=== PATIENT | female | born 1960 | race Caucasian/White ===

== ENCOUNTER 2019-06-10 13:26 | Outpatient (CLI) | payer MEDICAID, SELFPAY ==
[2019-06-10 14:30] LABS: Basophils % 0.4 %; Eosinophils # 0.2 10^3/uL (0.0-0.8); Eosinophils % 2.3 %; Hemoglobin 13.1 g/dL (11.5-15.3); Lymphocytes # 2.9 10^3/uL (0.8-4.8); Lymphocytes % 34.4 %; Mean Corpuscular HGB Conc 32.8 g/dL (30.0-36.0); Mean Corpuscular Hemoglobin 26.8 pg (28.0-34.0); Mean Corpuscular Volume 81.8 fL (81-99); Mean Platelet Volume 10.3 fL (7.4-10.4); Monocytes # 0.5 10^3/uL (0.2-0.9); Monocytes % 5.6 %; Neutrophils # 4.8 10^3/uL (1.8-7.7); Neutrophils % 56.9 %; Nucleated Red Blood Cells % 0 %; Platelet Count 356 10^3/cmm (130-400); Red Blood Count 4.89 10^6/uL (4.1-5.3); Red Cell Distribution Width 14.5 % (12.1-15.1); White Blood Count 8.3 10^3/uL (4.0-10.0)
[2019-06-10 14:31] LABS: Albumin Level 3.6 g/dL (3.5-5.2); Alkaline Phosphatase 143 IU/L (35-105); Aspartate Amino Transferase 73 U/L (0-32); Globulin 3.3 g/dL (1.3-4.6); Glomerular Filtration Rate 86.2 mL/min (90-130); Total Bilirubin 0.6 mg/dL (0.15-1.2); Total Protein 6.9 g/dL (6.6-8.7)
[2019-06-10 14:42] LABS: Alanine Aminotransferase 77 U/L (0-33)
[2019-06-10 15:29] LABS: C Reactive Protein 16.2 mg/L (0.0-4.9)
[2019-06-10 15:41] LABS: Erythrocyte Sedimentation Rate 29 mm/hr (0-15)
[2019-06-10 16:29] LABS: 25 Hydroxy Vitamin D 16 ng/mL (30-100)
== END 2019-06-10 13:27 | disposition home or self-care (01) ==
LOC: LAB 13:32
PROVIDERS: Family Provider Nurse Practitioner Family; PCP Nurse Practitioner Family; Visit Provider Internal Medicine Rheumatology
DX: M06.00 Rheumatoid arthritis without rheumatoid factor, unspecified site (principal)
CPT/HCPCS: 80076; 82306; 82565; 85025; 85651; 86140

== ENCOUNTER 2019-06-14 10:50 | Outpatient (CLI) | payer OTHER, SELFPAY ==
--- NOTE | 2019-06-14 11:11 | XR_ITS ---
WS: [id number] LUMBAR SPINE: 3 VIEWS TECHNIQUE: AP, lateral and L5-S1 spot. HISTORY: LUMBAR PAIN COMPARISON: None available. Mild degenerative scoliosis with curvature to the LEFT. Diffuse osteopenia. The disc spaces at L4-5 a nd L5-S1 are difficult to visualize due to rotation and scoliosis but do appear narrowed. Facet joint arthropathy is moderate at L4-5 and L5-S1. SI joints are symmetric bilaterally. No soft tissue abnormalities. Prior cholecystectomy. Surgical clips project over the LEFT ilium. Mild constipation. XR/XR lumbar spine 2-3V* [id number] IMPRESSION: 1. Degenerative rotoscoliosis with convexity to the LEFT. 2. No fracture. 3. Facet joint arthropathy is moderate at L4-5 and L5-S1.
== END 2019-06-14 10:51 | disposition home or self-care (01) ==
LOC: RAD 10:51
PROVIDERS: Family Provider Nurse Practitioner Family; PCP Nurse Practitioner Family; Visit Provider Emergency Medicine
DX: M54.5 Low back pain (principal); M41.56 Other secondary scoliosis, lumbar region; M47.817 Spondylosis without myelopathy or radiculopathy, lumbosacral region
CPT/HCPCS: 72100

== ENCOUNTER 2020-02-02 01:33 | Emergency (ER) | payer MEDICAID, SELFPAY ==
[2020-02-02 01:37] VITALS: BP 163/110; PULSE 100; RESP 18; TEMP 36.9; O2SAT 96; BMI 38.2
[2020-02-02 01:55] LABS: Glucose Point of Care 360 mg/dL (70-110)
[2020-02-02] MEDS: sodium chloride 0.9% 1,000 ML 999 ML IV (02:30)
[2020-02-02 02:42] LABS: Basophils # 0.1 10^3/uL (0.0-0.1); Basophils % 0.7 %; Eosinophils # 0.1 10^3/uL (0.0-0.8); Eosinophils % 1.3 %; Hematocrit 44.9 % (37.0-47.0); Hemoglobin 14.4 g/dL (11.5-15.3); Lymphocytes # 3.1 10^3/uL (0.8-4.8); Lymphocytes % 31.9 %; Mean Corpuscular HGB Conc 32.1 g/dL (30.0-36.0); Mean Corpuscular Hemoglobin 27.6 pg (28.0-34.0); Mean Corpuscular Volume 86.2 fL (81-99); Mean Platelet Volume 11.4 fL (7.4-10.4); Monocytes # 0.5 10^3/uL (0.2-0.9); Monocytes % 5.5 %; Neutrophils # 5.83 10^3/uL (1.8-7.7); Neutrophils % 60.3 %; Nucleated Red Blood Cells % 0 %; Platelet Count 303 10^3/cmm (130-400); Red Blood Count 5.21 10^6/uL (4.1-5.3); Red Cell Distribution Width 14.2 % (12.1-15.1); White Blood Count 9.7 10^3/uL (4.0-10.0)
[2020-02-02 02:45] LABS: Ketone (Acetest) Serum Negative (Negative)
--- NOTE | 2020-02-02 02:51 | W.ED.GENADLT ---
HPI - General Adult General: Chief complaint: General Medical Stated complaint: high blood sugar Time Seen by Provider: 02/02/20 01:51 History of Present Illness: HPI narrative: 59-year-old female with complaints of polyuria and polydipsia for the last couple of months. She states that she feels like she cannot take in enough water, and is urinating quite a bit. She gets nauseated at times. No vomiting. No fever. Family checked her blood sugar tonight and it was in the 400s. With no improvement, they come to the emergency department. Onset (ago): month(s) Radiation: non-radiation Severity: moderate Quality: other Relieving factors: none Exacerbating factors: none Associated symptoms: Reports nausea; Deny chest pain, cough, diaphoresis, dyspnea, fevers/chills, headache(s), rash, palpitations, short of breath or vomiting Treatments prior to arrival: none Review of Systems Const: Denies: diaphoresis Eyes: Denies: change in vision or blurry vision ENMT: Denies: swelling of lips/tongue, dental pain, change in hearing, epistaxis, post nasal drip or sinus pain Card: Denies: chest pain, palpitations, irregular heart rhythm or edema Resp: Denies: dyspnea GI: Reports: nausea; Denies: vomiting : Denies: dysuria or hematuria Musc: Denies: neck pain, back pain, joint redness or joint warmth Skin/Breast: Denies: rash, pruritus or erythema Neuro: Denies: headache(s) Psych: Denies: anxiety PFS ED PFSH: Medical History (Updated 02/02/20 @ 04:03 by Sivakumar Duvall DO) High risk medication use Seronegative rheumatoid arthritis Surgical History (Updated 07/23/19 @ 17:44 by Zane Jordan MD) History of bilateral breast reduction surgery (~1998) Hx of cholecystectomy (~1997) Hx of knee surgery Hx of lithotripsy (~2000) Hx of umbilical hernia repair (~1998) Family History Mother Cancer uterine CAD (coronary artery disease) Hypertension Father Stroke Social History Smoking and tobacco status: never smoked Second hand smoke exposure: No Alcohol intake: never Lives independently: Yes History of recent travel: No Current gender identity: Female Physical Exam Const: GENERAL APPEARANCE: well developed ORIENTATION/CONSCIOUSNESS: Yes oriented to person, Yes oriented to place and Yes oriented to time HENMT: COMMON NORMALS: normocephalic, external ears normal and Normal external nose present HEAD & SCALP: normocephalic FACE & SINUS: normal facial exam NOSE: Normal external nose present and No nasal discharge present EXTERNAL EAR: Yes external ears normal Eye: COMMON NORMALS: Equal, round and reactive pupils present, EOMs intact bilaterally and conjunctivae normal EYELID: eyelids normal CONJUNCTIVA: Yes conjunctivae normal PUPIL: Yes Equal, round and reactive pupils present Neck/C-Spine: GENERAL: No tracheal deviation Chest: COMMONS NORMALS: normal inspection of the chest CHEST: No tenderness Resp: COMMON NORMALS: clear to auscultation bilaterally EFFORT & INSPECTION: No tachypneic, No respiratory distress, No retractions, No uses accessory muscles and No tracheal deviation AUSCULTATION: clear to auscultation bilaterally, no rhonchi, no wheezes and lung sounds not diminished Cardio: COMMON NORMALS: regular rate and regular rhythm RATE: regular rate RHYTHM: regular rhythm HEART SOUNDS: no murmurs PERIPHERAL PULSES: radial pulses present GI: INSPECTION: No abdominal distension AUSCULTATION: No Hyperactive bowel sounds present and No Hypoactive bowel sounds present PALPATION: No Guarding due to palpation present (GI) and No Rigid due to palpation PERCUSSION: no dullness to percussion and no tympanic to percussion Neuro: SENSORIUM/ORIENTATION: Yes oriented to person, Yes oriented to place and Yes oriented to time Psych: COMMON NORMALS: mental status grossly normal Skin: COMMON NORMALS: no rashes or lesions noted GENERAL SKIN EXAM: no rashes or lesions noted Course Vital Signs: Vital signs: Vital Signs Temperature 98.4 F 02/02/20 01:37 Pulse Rate 100 02/02/20 01:37 Respiratory Rate 18 02/02/20 01:37 Blood Pressure 163/110 02/02/20 01:37 Pulse Oximetry 96 02/02/20 01:37 MDM - General Adult MDM Narrative: Medical decision making narrative: Hemoglobin A1c is 11+. And has an average blood sugar of in the 280s. She has mild pseudohyponatremia with a sodium of 135. There is no acidosis, no ketones in the serum. She will be allowed discharge. We will place her on metformin for now. Lab Data: Labs: Lab Results 02/02/20 02/02/20 02/02/20 Range/Units 01:52 02:30 02:30 WBC 9.7 (4.0-10.0) 10^3/ uL RBC 5.21 (4.1-5.3) 10^6/u L Hgb 14.4 (11.5-15.3) g/dL Hct 44.9 (37.0-47.0) % MCV 86.2 (81-99) fL MCH 27.6 L (28.0-34.0) pg MCHC 32.1 (30.0-36.0) g/dL RDW 14.2 (12.1-15.1) % Plt Count 303 (130-400) 10^3/c mm MPV 11.4 H (7.4-10.4) fL Neut % (Auto) 60.3 % Lymph % (Auto) 31.9 % [place] % (Auto) 5.5 % Eos % (Auto) 1.3 % Baso % (Auto) 0.7 % Neut # (Auto) 5.83 (1.8-7.7) 10^3/u L Lymph # (Auto) 3.1 (0.8-4.8) 10^3/u L [place] # (Auto) 0.5 (0.2-0.9) 10^3/u L Eos # (Auto) 0.1 (0.0-0.8) 10^3/u L Baso # (Auto) 0.1 (0.0-0.1) 10^3/u L Nucleated RBC % (a uto) 0 % Nucleated RBCs # 0.0 /100WBC Sodium 135 L (136-145) mmol/L Potassium 3.8 (3.5-5.1) mmol/L Chloride 97 L (98-107) mmol/L Carbon Dioxide 24 (22-29) mmol/L Anion Gap 17.8 (5-19) BUN 12 (6-20) mg/dL Creatinine 0.9 (0.5-0.9) mg/dL GFR Calculation 64.5 L (90-130) mL/min Glucose 376 H (65-115) mg/dL POC Glucose 360 (70-110) mg/dL Estimat Average Gl ucose Hemoglobin A1c (4.0-6.0) % Calculated Osmolal ity 295 (285-295) mOsm/k g Calcium 9.4 (8.5-10.5) mg/dL Total Bilirubin 0.6 (0.15-1.2) mg/dL AST 296 H (0-32) U/L ALT 197 H (0-33) U/L Alkaline Phosphata se 180 H (35-105) IU/L Total Protein 7.6 (6.6-8.7) g/dL Albumin 4.0 (3.5-5.2) g/dL Globulin 3.6 (1.3-4.6) g/dL TSH 3.11 (0.27-4.20) uIU/ mL Urine Color (Yellow) Urine Appearance (CLEAR) Urine pH (5-7) Ur Specific Gravit y (1.005-1.030) Urine Protein (Negative) Urine Glucose (UA) (Normal) Urine Ketones (Negative) Urine Blood (Negative) Urine Nitrate (Negative) Urine Bilirubin (Negative) Urine Urobilinogen (Negative) mg/dL Ur Leukocyte Flakita ase (Negative) Serum Ketones Negative (Negative) 02/02/20 02/02/20 Range/Units 02:30 03:02 WBC (4.0-10.0) 10^3/ uL RBC (4.1-5.3) 10^6/u L Hgb (11.5-15.3) g/dL Hct (37.0-47.0) % MCV (81-99) fL MCH (28.0-34.0) pg MCHC (30.0-36.0) g/dL RDW (12.1-15.1) % Plt Count (130-400) 10^3/c mm MPV (7.4-10.4) fL Neut % (Auto) % Lymph % (Auto) % [place] % (Auto) % Eos % (Auto) % Baso % (Auto) % Neut # (Auto) (1.8-7.7) 10^3/u L Lymph # (Auto) (0.8-4.8) 10^3/u L [place] # (Auto) (0.2-0.9) 10^3/u L Eos # (Auto) (0.0-0.8) 10^3/u L Baso # (Auto) (0.0-0.1) 10^3/u L Nucleated RBC % (a uto) % Nucleated RBCs # /100WBC Sodium (136-145) mmol/L Potassium (3.5-5.1) mmol/L Chloride (98-107) mmol/L Carbon Dioxide (22-29) mmol/L Anion Gap (5-19) BUN (6-20) mg/dL Creatinine (0.5-0.9) mg/dL GFR Calculation (90-130) mL/min Glucose (65-115) mg/dL POC Glucose (70-110) mg/dL Estimat Average Gl ucose 289 Hemoglobin A1c 11.7 H (4.0-6.0) % Calculated Osmolal ity (285-295) mOsm/k g Calcium (8.5-10.5) mg/dL Total Bilirubin (0.15-1.2) mg/dL AST (0-32) U/L ALT (0-33) U/L Alkaline Phosphata se (35-105) IU/L Total Protein (6.6-8.7) g/dL Albumin (3.5-5.2) g/dL Globulin (1.3-4.6) g/dL TSH (0.27-4.20) uIU/ mL Urine Color Yellow (Yellow) Urine Appearance Clear (CLEAR) Urine pH 5 (5-7) Ur Specific Gravit y 1.025 (1.005-1.030) Urine Protein Neg (Negative) Urine Glucose (UA) 4+ H (Normal) Urine Ketones 1+ H (Negative) Urine Blood Neg (Negative) Urine Nitrate Negative (Negative) Urine Bilirubin Neg (Negative) Urine Urobilinogen Norm (Negative) mg/dL Ur Leukocyte Flakita ase Negative (Negative) Serum Ketones (Negative) Discharge Plan Discharge Patient Disposition: Home Clinical Impression: Hyperglycemia Condition: Stable Prescriptions: New metformin 500 mg tablet 500 mg PO BID Qty: 60 RF: 0 No Action ranitidine HCl 150 mg tablet 150 mg PO BID RF: 0 acetaminophen [Tylenol] 325 mg tablet 325 mg PO QID PRNRF: 0 ibuprofen [Advil] 200 mg tablet 200 mg PO Q6H PRNRF: 0 nystatin 100,000 unit/mL suspension 400,000 unit PO QID Qty: 60 RF: 0 cholecalciferol (vitamin D3) 1,250 mcg (50,000 unit) tablet 1,250 mcg PO .weekly RF: 0 sulfasalazine 500 mg tablet 1 gm PO BID Qty: 120 RF: 3 prednisone 2.5 mg tablet See Rx Instructions PO DAILY PRN (Reason: rheumatoid ar) Qty: 120 RF: 2 omeprazole 40 mg capsule,delayed release(DR/EC) 40 mg PO DAILY Qty: 30 RF: 3 cyclobenzaprine 5 mg tablet 5 mg PO TID PRN (Reason: muscle spasm) Qty: 30 RF: 1 Discharge Orders: Discharge Order (Routine); Ordered 02/02/20 Ordered By: Sivakumar Duvall Referrals: Cecilia Marina FNP [Primary Care Provider] - 4-7 days Discharge Diet: Advance as tolerated Discharge Activity: Resume usual activity Patient Instructions: Hyperglycemia, Diabetes Mellitus Type 2 in Adults (ED) Activity Restrictions/Additional Instructions: Return for vomiting liquids or medications, change in mental status, other concerning symptoms. Occasions as directed. Check your fasting blood sugar in the morning and write those numbers down, present them to your doctor next week. Coding Level of Care Code ED Compliance Field Technician for Jose Danielg Fwd Exam Comprehensive
[2020-02-02 03:00] LABS: Estmated Average Glucose 289; Hemoglobin A1C 11.7 % (4.0-6.0)
[2020-02-02 03:08] LABS: Alanine Aminotransferase 197 U/L (0-33); Alkaline Phosphatase 180 IU/L (35-105); Anion Gap 17.8 (5-19); Aspartate Amino Transferase 296 U/L (0-32); Blood Urea Nitrogen 12 mg/dL (6-20); Calcium 9.4 mg/dL (8.5-10.5); Carbon Dioxide 24 mmol/L (22-29); Chloride 97 mmol/L (98-107); Globulin 3.6 g/dL (1.3-4.6); Glomerular Filtration Rate 64.5 mL/min (90-130); Glucose 376 mg/dL (65-115); Osmolality Calculated 295 mOsm/kg (285-295); Potassium 3.8 mmol/L (3.5-5.1); Sodium 135 mmol/L (136-145); Thyroid Stimulating Hormone 3.11 uIU/mL (0.27-4.20); Total Bilirubin 0.6 mg/dL (0.15-1.2); Total Protein 7.6 g/dL (6.6-8.7)
[2020-02-02 03:45] LABS: Add Urine Microscopic? NO
[2020-02-02 03:48] LABS: Bilirubin Urine Neg (Negative); Blood Urine Neg (Negative); Glucose Urine UA 4+ (Normal); Ketones Urine 1+ (Negative); Leukocyte Esterase Urine Negative (Negative); Nitrate Urine Negative (Negative); Protein Urine Neg (Negative); Specific Gravity, Urine 1.025 (1.005-1.030); Urine Appearance Clear (CLEAR); Urine Color Yellow (Yellow); Urobilinogen Urine Norm (Negative); pH Urine 5 (5-7)
[2020-02-02] MEDS: metformin 500 mg Tablet 1000 MG PO (03:59)
[2020-02-02 04:00] VITALS: PULSE 74; RESP 18; O2SAT 98
[2020-02-02 04:27] LABS: Glucose Point of Care 278 mg/dL (70-110)
== END 2020-02-02 04:00 | disposition home or self-care (01) ==
PROVIDERS: Emergency Provider Emergency Medicine; PCP Nurse Practitioner Family
DX: R73.9 Hyperglycemia, unspecified (principal)
CPT/HCPCS: 12345; 36416; 80053; 81003; 82009; 82962; 83036; 84443; 85025; 96360; 99282; 99283; J7030

== ENCOUNTER → 2020-02-03 16:43 | Outpatient (BNVA) | payer MEDICAID, SELFPAY | PROVIDERS: PCP Nurse Practitioner Family; Visit Provider Nurse Practitioner Family | DX: E11.65 Type 2 diabetes mellitus with hyperglycemia (principal); R79.89 Other specified abnormal findings of blood chemistry; I10 Essential (primary) hypertension; E55.9 Vitamin D deficiency, unspecified | CPT/HCPCS: 80053; 80061; 82043; 82306 ==

== ENCOUNTER 2020-03-16 11:59 | Outpatient (CLI) | payer MEDICAID, SELFPAY ==
--- NOTE | 2020-03-16 11:45 | US_ITS ---
WS: [id number] RIGHT UPPER QUADRANT ULTRASOUND HISTORY: elevated lfts COMPARISON: 01/09/2019 Liver: 18.7 cm in length. Slightly enlarged liver. No mass or bile duct dilatation. Gallbladder: Prior cholecystectomy. CBD: 0.5 cm Pancreas: Normal size and echogenicity. Right kidney: 11.6 cm in length. Normal size and echogenicity. No hydronephrosis or mass. Aorta and IVC: Unremarkable abdominal aorta and IVC. No ascites. US/US liver [id number] IMPRESSION: 1. Prior cholecystectomy. 2. Mild hepatomegaly.
== END 2020-03-16 12:00 | disposition home or self-care (01) ==
LOC: US 12:03
PROVIDERS: PCP Nurse Practitioner Family; Visit Provider Nurse Practitioner Family
DX: R79.89 Other specified abnormal findings of blood chemistry (principal); R16.0 Hepatomegaly, not elsewhere classified
CPT/HCPCS: 76705

== ENCOUNTER → 2020-03-18 17:20 | Outpatient (BNVA) | payer MEDICAID, SELFPAY | PROVIDERS: PCP Nurse Practitioner Family; Visit Provider Family Medicine | DX: R79.89 Other specified abnormal findings of blood chemistry (principal); Z68.37 Body mass index [BMI] 37.0-37.9, adult; Z71.89 Other specified counseling | CPT/HCPCS: 80076 ==

== ENCOUNTER → 2020-05-13 11:42 | Outpatient (BNVA) | payer MEDICAID, SELFPAY | PROVIDERS: PCP Nurse Practitioner Family; Visit Provider Nurse Practitioner Family | DX: E11.65 Type 2 diabetes mellitus with hyperglycemia (principal); R79.89 Other specified abnormal findings of blood chemistry; E55.9 Vitamin D deficiency, unspecified | CPT/HCPCS: 80053; 80061; 82306; 83036; 85025 ==

== ENCOUNTER → 2021-01-21 11:27 | Outpatient (BNVA) | payer MEDICAID, SELFPAY | PROVIDERS: PCP Nurse Practitioner Family; Visit Provider Family Medicine | DX: E11.65 Type 2 diabetes mellitus with hyperglycemia (principal); E55.9 Vitamin D deficiency, unspecified; R79.89 Other specified abnormal findings of blood chemistry; I10 Essential (primary) hypertension | CPT/HCPCS: 83036; 85025 ==

== ENCOUNTER → 2021-06-11 09:40 | Outpatient (BNVA) | payer MEDICARE, MEDICAID, SELFPAY | PROVIDERS: PCP Nurse Practitioner Family; Visit Provider Nurse Practitioner Family | DX: I10 Essential (primary) hypertension (principal); E11.65 Type 2 diabetes mellitus with hyperglycemia; E55.9 Vitamin D deficiency, unspecified; R79.89 Other specified abnormal findings of blood chemistry | CPT/HCPCS: 80053; 80061; 82306; 83036; 84443; 85025 ==